=== PATIENT | female | born 1980 | race Caucasian/White ===

== ENCOUNTER 2018-11-23 13:11 | Outpatient (CLI) | payer MEDICARE, MEDICAID ==
--- NOTE | 2018-11-23 14:27 | RAD ---
2 VIEWS CHEST: Date: 11/19/18 HISTORY: Evaluate for pneumothorax. COMPARISON: None. FINDINGS: There is a small bore catheter in the right hemithorax. Pneumothorax is not appreciated. There does a ppear to be some opacification which may involve the middle lobe. Adequate aeration of the left lung. Unremarkable cardiac silhouette. IMPRESSION: Small bore right-sided chest tube without evidence of pneumothorax. POS: [facility]
== END 2018-11-23 13:12 | disposition home or self-care (01) ==
LOC: RAD 13:11
PROVIDERS: ATTEND Thoracic Surgery (Cardiothoracic Vascular Surgery)
DX: J93.9 Pneumothorax, unspecified (principal)
CPT/HCPCS: 71046